=== PATIENT | female | born 1945 | race Caucasian/White ===

== ENCOUNTER 2016-04-05 04:39 | Inpatient (IN) | payer MEDICARE, BC ==
[2016-04-05] MEDS ORDERED: ALBUTEROL 0.083% 3 ML NEB NEB STA (04:47)
[2016-04-05] MEDS ORDERED: METHYLPREDNISOLONE 125 MG/2 ML VIAL IV ONE (04:47)
--- NOTE | 2016-04-05 04:54 | EDPRACDOC ---
[id number] Source: Patient Mode Of Arrival: Ambulance Home Medications: Home Medications Albuterol Sulfate [Proair Hfa] 2 puff INH Q4H PRN 11/24/13 Allopurinol [Zyloprim] [place] [address]11/24/13 Ergocalciferol (Vitamin D2) [Vitamin D2 (ergocalciferol)] 50,000 units PO .QFRIDAY 11/24/13 Furosemide [Lasix] 40 [place] 79911/24/13 Gabapentin [Neurontin] 300 mg PO BID 11/24/13 Diltiazem HCl [Cardizem Cd] [place] [address]/03/14 Acetaminophen Ex Str Tablet [TYLENOL EXTRA STRENGTH Tablet] 1,000 mg PO Q6H PRN 05/27/15 Acetaminophen [Non-Aspirin] 325 mg PO HS PRN 05/27/15 Albuterol/Ipratropium Neb [Duoneb] 3 ml NEB Q6H PRN 05/27/15 Ferrous Sulfate [Feosol] 325 [place] 79905/27/15 Lactobacillus Acidophilus/Pect [Acidophilus-Pectin Capsule] 1 cap PO 799 Loperamide HCl [Imodium A-D] 2 mg PO . DIR PRN 05/27/15 Ondansetron HCl [Zofran] 4 mg PO Q8H PRN 05/27/15 Guaifenesin-Dextromethorphan [Robitussin Dm] 10 ml PO Q4H PRN 02/21/16 Liraglutide [Victoza 0.6 mg/0.1 ml] 1.2 mg SQ .DAILY@NOON 02/21/16 Magnesium Oxide [Mag-Ox] 400 mg PO 199902/21/16 Potassium Chloride [Klor-Con M20] 20 meq PO 199902/21/16 Zolpidem Tartrate [Ambien] 5 mg PO HS PRN 02/21/16 Alprazolam [Xanax] 0.25 mg PO DAILY PRN 04/05/16 Cyanocobalamin (Vitamin B-12) [Vitamin B-12] 2,000 mcg PO 199904/05/16 Escitalopram Oxalate [Lexapro] 10 mg PO 0804/05/16 Oxycodone HCl/Acetaminophen [Percocet 5-325 mg Tablet] 1 each PO Q4H PRN Allergies/Adverse Reactions: Allergies Allergy/AdvReac Type Severity Reaction Status Date / Time amoxicillin [Amoxicillin] Allergy Unknown Rash-Genera Verified 04/05/16 10:37 lized Penicillins Allergy Rash-Genera Verified 04/05/16 10:37 lized - History of Present Illness HPI: PT PRESENTS WITH PROGRESSIVE DYSPNEA AND COUGH OVER THE LAST FEW DAYS. GIVEN AN ALBUTEROL TREATMENT BY EMS IN ROUTE TO HOSPITAL WITH PARTIAL IMPROVEMENT. Shortness of Breath: Moderate Relevant History: Reports: Heart Failure (CHF) SOB Worsens with: Reports: Exertion SOB Improves with: Reports: Inhaler Associated Signs and symptoms: Reports: Cough. Denies: Nasal Symptoms, Vomiting , Diarrhea ED Past Medical History - History Reviewed Yes Nurses notes reviewed and agree except as marked - Patient Medical History Neurological History: Reports: Cerebrovascular Accident, Seizures (20 YRS AGO) Cardiac History: Reports: Hypertension, Congestive Heart Failure, Hypercholesterolemia Respiratory History: Reports: Pneumonia GI/ History: Reports: Renal Failure (JUST DIAGNOSED). Denies: Kidney Stones Musculoskeletal History: Reports: Arthritis, Gout Psychological History: Reports: Depression, Anxiety. Denies: Substance Use Disorder Systemic History: Reports: Diabetes, Hypothyroidism (thyroidectomy). Denies: Cancer Surgical History: Reports: Tonsillectomy/Adnoidectomy, Other (Thyroidectomy ( Dr. Vides), Leg surgery as a child, knees, cataracts) - Family Medical History Reports: Hypertension (Father.), Cancer (Pancreatic: father.), Cardiac Disorders (Father with IA and heart disease.). Denies: Diabetes, Stroke - Social Medical History Smoking Status: Never smoker Social History: Denies: Substance Use Disorder EDM Review of Systems - Review of Systems ROS Negative Except as Marked: Yes All systems reviewed and were negative except as marked Constitutional: Fatigue, Weakness. negative: Fever Respiratory: Cough, Shortness of Breath, Wheezing Cardiovascular: negative: Chest Pain Gastrointestinal: negative: Pain, Vomiting - Physical Exam Constitutional: Alert Oriented to: Person, Place Last recorded Vital Signs: Oxygen Pulse Oxygen Saturation O2 Device Oxygen Flow Rate Fraction of Inspired Oxygen ( FIO2) - HEENT Head: negative: Deformity, Laceration Eye Exam: negative: Conjunctival Injection, Pale Conjunctiva Oropharynx: Membranes Dry (TACKY) Nose: negative: Congestion, Discharge Neck: negative: Limited ROM - Respiratory/Cardiovascular Respiratory: Diminished, Tachypnea, Wheezes (DIFFUSE) Cardiovascular: negative: Bradycardia, Tachycardia, Irregular - GI Auscultation: Normal Palpation: Normal Tenderness: Non tender - Musculoskeletal Extremities: Radial Pulse (PALPABLE) - Integumentary Skin: Warm, Dry. negative: Rash - Neurologic Memory Impaired: Normal Motor Function: Normal Mood Description: Anxious Thought: Coherent Perception: Normal ED SOB MDM - Results Result Diagrams: 04/05/16 04:45 04/05/16 04:45 - EKG EKG #1 EKG Time: 04:54 -: Yes EKG interpreted by me Rate: bpm: 92 Rhythm: NSR Block: 1 ST: Nonsp - Departure Yes I personally saw and evaluated the patient. Disposition: Admit IP To This Hospital Condition: Stable Final Diagnosis: COPD EXACERBATION, Elevated brain natriuretic peptide (BNP) level, Lactic acidosis, Hypoxia Decision to Admit Time: 07:00 Decision to admit date: 04/05/16 Decision to admit: from ED
[2016-04-05 05:03] LABS: ABG Draw Site Right Radial; ALLEN'S TEST PASS; BEb 7.1 (+/- 2); TCO2 33.4 MMOL/L (23-27)
[2016-04-05 05:04] LABS: AUTOMATED BASOPHIL 0.4 % (0-2); AUTOMATED EOSINOPHIL 0.7 % (0-5); AUTOMATED LYMPH 18.6 % (17-44); AUTOMATED MONOCYTE 12.5 % (3-10); AUTOMATED NEUTROPHIL 67.8 % (45-76); MPV 6.8 fL (7.4-10.4)
[2016-04-05 05:14] LABS: BLOOD UREA NITROGEN 21 MG/DL (7-17); CALC CORRECTED 8.7 MG/DL (8.4-10.2); CALCIUM 8.3 MG/DL (8.4-10.2); CALCULATED OSMOLALITY 267 MOs/Kg (270-290); CHLORIDE 97 mEq/L (98-107); CPK TOTAL WITH POSSIBLE MB 59 IU/L (30-134); GLUCOSE 135 MG/DL (70-99); SODIUM LEVEL 136 mEq/L (137-146); TOTAL PROTEIN 6.8 G/DL (6.3-8.2)
[2016-04-05 05:16] LABS: PARTIAL THROMB. TIME 26.7 SEC (22-35)
[2016-04-05 05:40] LABS: RBC/URINE 0-2 (0-5)
[2016-04-05 05:41] LABS: LEUKOCYTES/URINE NEG (NEGATIVE); NITRITE/URINE NEG (NEGATIVE); URINE OCCULT BLOOD NEG (NEG/TRACE)
--- NOTE | 2016-04-05 06:29 | DIRPT ---
CLINICAL DATA: Initial evaluation for acute dyspnea. EXAM: PORTABLE CHEST 1 VIEW COMPARISON: Prior study from 02/21/2016. FINDINGS: Cardiac and mediastinal silhouettes are stable in size and contour, and remain within normal limits. Surgical clips overlie the region of the thyroid. Lungs are hypoinflated. Mild right basilar atelectasis. Mild central perihilar vascular congestion without overt pulmonary edema. No pleural effusion. No consolidative airspace opacity. No pneumothorax. No acute osseous abnormality. Sclerotic lesion in the left humeral head is stable. IMPRESSION: 1. Mild perihilar vascular congestion without overt pulmonary edema. 2. Shallow lung inflation with mild right basilar atelectasis. 3. No other active cardiopulmonary disease. Electronically Signed By: Gold Vincent M.D. On: 04/05/2016 06:26
[2016-04-05] MEDS ORDERED: Docusate Sodium 100 MG CAP PO PRN (08:23)
[2016-04-05] MEDS ORDERED: MAGNESIUM HYDROXIDE 30 ML BOTTLE PO PRN (08:23)
[2016-04-05] MEDS ORDERED: ONDANSETRON HCL 4 MG/2 ML VIAL IV PRN (08:23)
[2016-04-05] MEDS ORDERED: GLUCOSE (ORAL GEL) 15 GM TUBE PO PRN (08:23)
[2016-04-05] MEDS ORDERED: GUAIFENESIN 200 MG/10 ML UDC PO PRN (08:23)
[2016-04-05] MEDS ORDERED: BENZONATATE 100 MG PERLES PO PRN (08:23)
[2016-04-05] MEDS ORDERED: DEXTROSE 25 GM/50 ML PFS IV PRN (08:23)
[2016-04-05] MEDS ORDERED: GLUCAGON 1 MG VIAL SQ PRN (08:23)
--- NOTE | 2016-04-05 08:23 | HISTPHYS ---
- Chief Complaint shortness of breath, copd exacerbation - History of Present Illness Ms Rascon is a 70-year-old white female, resident of [facility] was sent to the emergency room with increasing respiratory distress and congestion. She has low cognitive function and is unable to provide much history. Her brother answers most questions for her. He states that she was doing well up until just couple of days ago. Since then she has had increasing cough, congestion, wheezing, shortness of breath. She normally does not wear oxygen and does not require nebulizer treatments. In the emergency room she is wheezing diffusely with increased work of breathing. She is severely hypoxic with a PO2 in the 50s. X-ray shows no obvious acute infiltrate given her hypoxia and respiratory distress she will be admitted to the hospital for further evaluation and management. - Medical History Cardiac History: Reports: Hypertension, Congestive Heart Failure, Hypercholesterolemia Respiratory History: Reports: Pneumonia GI/ History: Reports: Renal Failure (JUST DIAGNOSED). Denies: Kidney Stones Musculoskeletal History: Reports: Arthritis, Gout Systemic History: Reports: Diabetes, Hypothyroidism (thyroidectomy). Denies: Cancer Neurological History: Reports: Cerebrovascular Accident, Seizures (20 YRS AGO), Other Psychological History: Reports: Depression, Anxiety. Denies: Substance Use Disorder - Surgical History Reports: Tonsillectomy/Adnoidectomy, Other (Thyroidectomy (Dr. Vides), Leg surgery as a child, knees, cataracts) - Medictions/Allergies Allergies amoxicillin [Amoxicillin] Allergy (Unknown, Verified 05/27/15 19:02) Rash-Generalized Penicillins Allergy (Verified 05/27/15 19:02) Rash-Generalized Home Medications Albuterol Sulfate [Proair Hfa] 2 puff INH Q4H PRN 11/24/13 Allopurinol [Zyloprim] 100 mg PO DAILY 11/24/13 Ergocalciferol (Vitamin D2) [Vitamin D2 (ergocalciferol)] 50,000 units PO .QFRIDAY 11/24/13 Furosemide [Lasix] 40 mg PO QAM 11/24/13 Gabapentin [Neurontin] 300 mg PO BID 11/24/13 Diltiazem HCl [Cardizem Cd] 240 mg PO QAM 04/03/14 Acetaminophen Ex Str Tablet [TYLENOL EXTRA STRENGTH Tablet] 1,000 mg PO Q6H PRN 05/27/15 Acetaminophen [Non-Aspirin] 325 mg PO HS PRN 05/27/15 Albuterol/Ipratropium Neb [Duoneb] 3 ml NEB Q6H PRN 05/27/15 Ferrous Sulfate [Feosol] 325 mg PO DAILY 05/27/15 Lactobacillus Acidophilus/Pect [Acidophilus-Pectin Capsule] 1 cap PO DAILY 05/26 Loperamide HCl [Imodium A-D] 2 mg PO . DIR PRN 05/27/15 Ondansetron HCl [Zofran] 4 mg PO Q8H PRN 05/27/15 CYANOCOBALAMIN (Vitamin B-12) [Vitamin B-12] 1,000 mcg SQ .MONTHLY 02/21/16 Escitalopram Oxalate [Lexapro] 5 mg PO DAILY 02/21/16 Guaifenesin [Humabid, Mucinex] 600 mg PO Q12H 02/21/16 Guaifenesin-Dextromethorphan [Robitussin Dm] 10 ml PO Q4H PRN 02/21/16 Levofloxacin [Levaquin] 750 mg PO .DAILY X 10D 02/21/16 Liraglutide [Victoza 0.6 mg/0.1 ml] 1.2 mg SQ DAILY@0800 02/21/16 Magnesium Oxide [Mag-Ox] 400 mg PO DAILY 02/21/16 Norel Ad 1 tab PO Q6H 02/21/16 Potassium Chloride [Klor-Con M20] 20 meq PO DAILY 02/21/16 Zolpidem Tartrate [Ambien] 5 mg PO HS PRN 02/21/16 - Family History Reports: Hypertension (Father.), Cancer (Pancreatic: father.), Cardiac Disorders (Father with PA and heart disease.). Denies: Diabetes, Stroke - Social History Lives: in Assisted Living Smoking Status: Never smoker Social History: Denies: Alcohol Use, Substance Use Disorder - Review of Systems Yes Review of systems cannot be obtained due to the patient's medical condition Constitutional: negative: Fever - Physical Exam Constitutional: Alert, Distress. negative: Well appearing (Acutely ill- appearing) Oriented to: Person, Place Exam: Last Vital Signs Temp 99.1 F 04/05/16 04:46 Pulse 94 04/05/16 06:25 Resp 18 04/05/16 06:25 BP 140/63 04/05/16 06:25 Pulse Ox 93 04/05/16 06:25 Intake & Output 04/04/16 04/05/16 04/05/16 23:59 07:59 15:59 Patient's weight 72.575 kg - HEENT Head: Normal. negative: Deformity, Laceration Eye: Normal. negative: Conjunctival Injection, Pale Conjunctiva Oropharynx: Normal, Membranes Dry (TACKY) Nose: negative: Congestion, Discharge - Respiratory/Cardiovascular Respiratory: Diminished, Rhonchi, Tachypnea, Wheezes (DIFFUSE) Cardiovascular: Tachycardia - GI Auscultation: Normal Palpation: Normal Tenderness: Non tender - Musculoskeletal Back: Normal. negative: Abrasion, Ecchymosis Extremities: Normal, Femoral Pulse, Pedal Pulse, Radial Pulse (PALPABLE). negative: Edema, Pedal Edema - Integumentary Skin: Normal, Warm, Dry. negative: Rash Lymphatics: Normal. negative: Adenopathy - Neurologic Memory Impaired: Normal Motor Function: Normal Cranial Nerve: Normal Cerebellar: Normal Mood Description: Anxious Thought: Coherent Perception: Normal - Focused CV Perfusion Exam Vital Signs: Last Vital Signs Temp 99.1 F 04/05/16 04:46 Pulse 94 04/05/16 06:25 Resp 18 04/05/16 06:25 BP 140/63 04/05/16 06:25 Pulse Ox 93 04/05/16 06:25 - Lab Results Laboratory Results - last 24 hr 04/05/16 04/05/16 04/05/16 04:45 04:45 04:45 WBC 10.5 RBC 3.45 L Hgb 10.6 L Hct 31.7 L MCV 92 MCH 30.7 MCHC 33.4 RDW 14.4 Plt Count 188 MPV 6.8 L Neut % (Auto) 67.8 Lymph % (Auto) 18.6 Starr % (Auto) 12.5 H Eos % (Auto) 0.7 Baso % (Auto) 0.4 Absolute Neuts (auto) 7.04 Absolute Lymphs (auto) 1.89 PT INR APTT Puncture Site pH pCO2 pO2 HCO3 Total CO2 Base Excess FiO2 % Specimen Drawn By Sodium 136 L Potassium 4.9 Chloride 97 L Carbon Dioxide 30 Anion Gap 14 BUN 21 H Creatinine 1.40 H Estimated GFR (MDRD) 37 L Glucose 135 H Calculated Osmolality 267 L Lactic Acid 2.2 H Calcium 8.3 L Corrected Calcium 8.7 Total Bilirubin 0.7 AST 20 ALT 31 Alkaline Phosphatase 130 Creatine Kinase 59 Troponin I < 0.01 [id number] Pept Total Protein 6.8 Albumin 3.6 Urine Color Urine Clarity Urine pH Ur Specific Cobb Urine Protein Urine Glucose (UA) Urine Ketones Urine Occult Blood Urine Nitrite Urine Bilirubin Urine Urobilinogen Ur Leukocyte Esterase Urine RBC Urine WBC Ur Epithelial Cells Urine Bacteria Urine Mucus 04/05/16 04/05/16 04/05/16 04:45 04:45 04:55 WBC RBC Hgb Hct MCV MCH MCHC RDW Plt Count MPV Neut % (Auto) Lymph % (Auto) Starr % (Auto) Eos % (Auto) Baso % (Auto) Absolute Neuts (auto) Absolute Lymphs (auto) PT 10.0 INR 1.0 APTT 26.7 Puncture Site Right radial pH 7.460 H pCO2 45.0 pO2 59.0 L HCO3 32.0 H Total CO2 33.4 H Base Excess 7.1 H FiO2 % 2lpm/nc Specimen Drawn By Alham Sodium Potassium Chloride Carbon Dioxide Anion Gap BUN Creatinine Estimated GFR (MDRD) Glucose Calculated Osmolality Lactic Acid Calcium Corrected Calcium Total Bilirubin AST ALT Alkaline Phosphatase Creatine Kinase Troponin I [id number] Pept 4470 H Total Protein Albumin Urine Color Urine Clarity Urine pH Ur Specific Cobb Urine Protein Urine Glucose (UA) Urine Ketones Urine Occult Blood Urine Nitrite Urine Bilirubin Urine Urobilinogen Ur Leukocyte Esterase Urine RBC Urine WBC Ur Epithelial Cells Urine Bacteria Urine Mucus 04/05/16 04/05/16 05:30 07:49 WBC RBC Hgb Hct MCV MCH MCHC RDW Plt Count MPV Neut % (Auto) Lymph % (Auto) Starr % (Auto) Eos % (Auto) Baso % (Auto) Absolute Neuts (auto) Absolute Lymphs (auto) PT INR APTT Puncture Site pH pCO2 pO2 HCO3 Total CO2 Base Excess FiO2 % Specimen Drawn By Sodium Potassium Chloride Carbon Dioxide Anion Gap BUN Creatinine Estimated GFR (MDRD) Glucose Calculated Osmolality Lactic Acid Calcium Corrected Calcium Total Bilirubin AST ALT Alkaline Phosphatase Creatine Kinase Troponin I < 0.01 [id number]-[id number] Pept Total Protein Albumin Urine Color Yellow Urine Clarity Clear Urine pH 5.0 Ur Specific Cobb 1.010 Urine Protein Trace Urine Glucose (UA) Neg Urine Ketones Neg Urine Occult Blood Neg Urine Nitrite Neg Urine Bilirubin Neg Urine Urobilinogen 0.2 Ur Leukocyte Esterase Neg Urine RBC 0-2 Urine WBC 5-10 H Ur Epithelial Cells 2+ Urine Bacteria Few Urine Mucus Occ - Assessment (1) COPD exacerbation J44.1 - CHRONIC OBSTRUCTIVE PULMONARY DISEASE W (ACUTE) EXACERBATION Acute Present on Admission: Yes Moderate hypoxia and significant wheezing on exam. Nonsmoker and symptoms likely exacerbated by acute bronchitis. Will start on IV steroids, nebulizer treatments, IV antibiotics pulmonary toilet. Oxygen as needed and increase activity as tolerated (2) Acute bronchitis J20.9 - ACUTE BRONCHITIS, UNSPECIFIED Acute Present on Admission: Yes Qualifiers: Bronchitis organism: unspecified organism Qualified Code(s): J20.9 - Acute bronchitis, unspecified Significant cough, congestion and shortness of breath. 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 Continue current medications, Accu-Cheks and sliding scale insulin. Steroids likely will exacerbate and will need to be monitored closely (4) Hypertension I10 - ESSENTIAL (PRIMARY) HYPERTENSION Acute Present on Admission: Yes Qualifiers: Hypertension type: essential hypertension Qualified Code(s): I10 - Essential (primary) hypertension Continue home medications and monitor (5) Acute kidney injury N17.9 - ACUTE KIDNEY FAILURE, UNSPECIFIED Acute Present on Admission: Yes Mild. IV fluids and supportive care. (6) Lactic acidosis E87.2 - ACIDOSIS Acute Present on Admission: Yes Mild. Expect will improve with IV hydration. Case Care Discussed with: Patient, Family (Discussed with brother at length)
[2016-04-05] MEDS ORDERED: ESCITALOPRAM OXALATE 10 MG TAB PO SCH (09:00)
[2016-04-05] MEDS ORDERED: LIRAGLUTIDE 18 MG/3ML (0.6 MG/0.1 ML) PEN SQ SCH (09:00)
[2016-04-05] MEDS ORDERED: CYANOCOBALAMIN 1000 MCG/ML VIAL SQ SCH (09:00)
[2016-04-05] MEDS: Levofloxacin 750 mg/150 ml D5W 750 MG/150 ML RTU IV SCH (09:22)
[2016-04-05] MEDS: NS 1,000 ML IV SCH ×2 (09:22→20:06)
[2016-04-05] MEDS: GABAPENTIN 300 MG CAP PO SCH ×2 (09:33→20:07)
[2016-04-05] MEDS: LACTOBACILLUS ACIDOPHILUS TAB PO SCH (09:33)
[2016-04-05] MEDS: ALLOPURINOL 100 MG TAB PO SCH (09:34)
[2016-04-05] MEDS: FUROSEMIDE 40 MG TAB PO SCH (09:34)
[2016-04-05] MEDS: METHYLPREDNISOLONE 125 MG/2 ML VIAL IV SCH ×3 (09:35→20:07)
[2016-04-05] MEDS: LIRAGLUTIDE 18 MG/3ML (0.6 MG/0.1 ML) PEN SQ SCH (09:35)
[2016-04-05] MEDS: Albuterol/Ipratropium Neb 3 ML NEB NEB PRN ×2 (09:53→17:17)
[2016-04-05] MEDS ORDERED: Vaccine Screening Complete SCH (11:00)
[2016-04-05] MEDS: MAGNESIUM OXIDE 400 MG TAB PO SCH (11:57)
[2016-04-05] MEDS: POTASSIUM CHLORIDE 20 MEQ TAB PO SCH (11:57)
[2016-04-05] MEDS: FERROUS SULFATE 324 MG TAB PO SCH (11:57)
[2016-04-05] MEDS: REGULAR INSULIN 100 UNITS/ML - 3 ML VIAL SQ SCH ×3 (11:58→20:08)
[2016-04-05] MEDS: Albuterol/Ipratropium Neb 3 ML NEB NEB SCH ×2 (13:25→21:04)
[2016-04-05] MEDS: ENOXAPARIN 40 MG/0.4 ML PFS SQ SCH (16:52)
--- NOTE | 2016-04-05 19:26 | GENMEDPROG ---
Note CROSS COVER NOTE 04/05/161909 S: NURSE CALLED. NEW RESULTS. BLOOD CULTURE 1/2 WITH GPC IN CHAINS. O: BLOOD CULTURE 1/2 FROM TODAY, 04/05/16: GPC IN CHAINS. A/P: 1. BACTEREMIA DUE TO GPC IN CHAINS. Could be Strep pneumo or other organism. Discussed with lab: no definitive answer yet. Discussed with pharmacy: Low rates of resistance of Levaquin to Strep pneumo at this facility. Plan: Monitor temp. If any deterioration, could consider adding another antibiotic, such as ceftriaxone. For now, until further information is known, continue Levaqin.
[2016-04-05] MEDS: ACETAMINOPHEN 325 MG/TAB TABLET PO PRN (22:28)
[2016-04-05] MEDS: ZOLPIDEM TARTRATE 5 MG TAB PO PRN (22:28)
[2016-04-06] MEDS: Albuterol/Ipratropium Neb 3 ML NEB NEB SCH ×4 (02:16→21:29)
[2016-04-06 04:52] LABS: ALLEN'S TEST PASS; BEb 2.2 (+/- 2); TCO2 29.8 MMOL/L (23-27)
[2016-04-06 04:53] LABS: ABG Draw Site Right Radial
[2016-04-06 05:36] VITALS: BMI 34.4
[2016-04-06] MEDS: METHYLPREDNISOLONE 125 MG/2 ML VIAL IV SCH ×4 (06:06→20:27)
[2016-04-06] MEDS: REGULAR INSULIN 100 UNITS/ML - 3 ML VIAL SQ SCH ×4 (06:08→20:25)
[2016-04-06] MEDS: NS 1,000 ML IV SCH ×3 (06:14→17:38)
[2016-04-06 07:39] LABS: BLOOD UREA NITROGEN 24 MG/DL (7-17); CALCIUM 7.7 MG/DL (8.4-10.2); CALCULATED OSMOLALITY 268 MOs/Kg (270-290); CHLORIDE 99 mEq/L (98-107); GLUCOSE 204 MG/DL (70-99); SODIUM LEVEL 134 mEq/L (137-146)
[2016-04-06 07:47] LABS: SEG NEUTROPHIL 89 % (45-76)
[2016-04-06] MEDS: ALLOPURINOL 100 MG TAB PO SCH (08:16)
[2016-04-06] MEDS: GABAPENTIN 300 MG CAP PO SCH ×2 (08:16→20:25)
[2016-04-06] MEDS: LIRAGLUTIDE 18 MG/3ML (0.6 MG/0.1 ML) PEN SQ SCH (08:17)
[2016-04-06] MEDS: ESCITALOPRAM OXALATE 10 MG TAB PO SCH (08:17)
[2016-04-06] MEDS: FUROSEMIDE 40 MG TAB PO SCH (08:17)
[2016-04-06] MEDS: FERROUS SULFATE 324 MG TAB PO SCH (08:18)
[2016-04-06] MEDS: Levofloxacin 750 mg/150 ml D5W 750 MG/150 ML RTU IV SCH (08:18)
--- NOTE | 2016-04-06 10:14 | GENMEDPROG ---
Chief Complaint: COPD exac, acute bronchitis, DM-2, HTN Currently: Reports: Cough, NAGY, SOB DVT Prophylaxis: Yes - Physical Examination Vital Signs and I&O: Last Vital Signs Temp 97.9 F 04/06/16 05:36 Pulse 80 04/06/16 05:36 Resp 20 04/06/16 05:36 BP 124/60 04/06/16 05:36 Pulse Ox 91 04/06/16 08:00 Oxygen Pulse Oxygen Saturation 91 O2 Device Nasal Cannula Oxygen Flow Rate 2.5 Fraction of Inspired Oxygen ( FIO2) Intake & Output 04/03/16 04/04/16 04/05/16 04/06/16 23:59 23:59 23:59 23:59 Intake Total 1781 1475 Balance 178 1475 Patient's weight 84.368 kg 85.36 kg General: Alert, Oriented x3, Cooperative, Mild distress HEENT: Normal, PERRLA, EOMI, Anicteric Sclera, Mucous membr. moist/pink Neck: Full range of motion, Normal Trachea alignment, Normal inspection, No Masses palpable, No Thyromegaly palpable Lymphatics: Normal Respiratory: Diminished, Tachypnea, Wheezes (DIFFUSE) Cardiovascular: Regular rate and rhythm, Normal S1, Normal S2, Good Pedal Pulses , PMI Not Lateralized, Chest Non Tender. negative: LE Edema GI: Normal bowel sounds, Soft, Non tender, No masses Extremities/Musculoskeletal: Normal pulses, FROM. negative: Edema, Clubbing, Cyanosis Skin: Warm,Dry and Intact, No breakdown Neurological: Normal speech, Strength at 5/5 X4 ext, Normal tone, DTR Intact, Cranial Nerves (normal) Psych/Mental Status: Appropriate, Normal Affect, Cooperative Lab/DI/Studies Reviewed: Laboratory Tests 04/06/16 04/06/16 04/06/16 04:45 06:05 06:05 WBC 11.6 H Hgb 9.2 L D Hct 27.9 L Plt Count 178 Seg Neuts % (Manual) 89 H Band Neutrophils % 1 Lymphocytes % (Manual) 8 L Puncture Site Right radial pH 7.370 pCO2 49.0 H pO2 64.0 L HCO3 28.3 H Total CO2 29.8 H Base Excess 2.2 H FiO2 % 1.5l nc Sodium 134 L Potassium 4.4 Chloride 99 Carbon Dioxide 27 Anion Gap 12 BUN 24 H Creatinine 1.20 H Estimated GFR (MDRD) 45 L Glucose 204 H POC Capillary Glucose Calculated Osmolality 268 L Calcium 7.7 L 04/06/16 11:07 WBC Hgb Hct Plt Count Seg Neuts % (Manual) Band Neutrophils % Lymphocytes % (Manual) Puncture Site pH pCO2 pO2 HCO3 Total CO2 Base Excess FiO2 % Sodium Potassium Chloride Carbon Dioxide Anion Gap BUN Creatinine Estimated GFR (MDRD) Glucose POC Capillary Glucose 343 H Calculated Osmolality Calcium Microbiology 04/05/16 05:30 Urine - Clean Catch - Midstream Urine Culture - Final Contaminated: Multiple organisms present. - Assessment (1) Acute bronchitis Acute J20.9 - ACUTE BRONCHITIS, UNSPECIFIED Qualifiers: Bronchitis organism: unspecified organism Qualified Code(s): J20.9 - Acute bronchitis, unspecified Comment/Plan: Significant cough, congestion and shortness of breath. IV antibiotic w/ Levaquin and pulmonary toilet as outlined (2) COPD exacerbation Acute J44.1 - CHRONIC OBSTRUCTIVE PULMONARY DISEASE W (ACUTE) EXACERBATION Comment/Plan: Moderate hypoxia and significant wheezing on exam. Nonsmoker and symptoms likely exacerbated by acute bronchitis. Will start on IV steroids, nebulizer treatments, IV antibiotics, pulmonary toilet. Oxygen as needed and increase activity as tolerated (3) Diabetes mellitus Acute E11.9 - TYPE 2 DIABETES MELLITUS WITHOUT COMPLICATIONS Qualifiers: Diabetes mellitus type: type 2 Diabetes mellitus complication status: without complication Diabetes mellitus complication detail: D Diabetic retinopathy severity: D Proliferative retinopathy type: P Diabetes mellitus macular edema: D Diabetes mellitus alf insulin use: without alf use Laterality: L Chronic kidney disease stage: C Qualified Code(s): E11.9 - Type 2 diabetes mellitus without complications Comment/Plan: Currently on Victoza. Continue current medications, Accu-Cheks and sliding scale insulin. Steroids likely will exacerbate and will need to be monitored closely (4) Hypertension Acute I10 - ESSENTIAL (PRIMARY) HYPERTENSION Qualifiers: Hypertension type: essential hypertension Qualified Code(s): I10 - Essential (primary) hypertension Comment/Plan: Continue home medications and monitor (5) Acute on chronic renal failure Acute N17.9 - ACUTE KIDNEY FAILURE, UNSPECIFIED; N18.9 - CHRONIC KIDNEY DISEASE, UNSPECIFIED Case Care Discussed with: Patient, Nursing Staff Education/Counseling Given To: Patient Education/Counseling Given Regarding: Diagnosis, Treatment, Prognosis Critical Care: No Couseling Time (>50% in counseling/coordination): No Code: 61487 (12+)
[2016-04-06] MEDS: MAGNESIUM OXIDE 400 MG TAB PO SCH (12:41)
[2016-04-06] MEDS: POTASSIUM CHLORIDE 20 MEQ TAB PO SCH (12:41)
[2016-04-06] MEDS: LACTOBACILLUS ACIDOPHILUS TAB PO SCH (13:35)
[2016-04-06] MEDS: ENOXAPARIN 40 MG/0.4 ML PFS SQ SCH (17:37)
[2016-04-06] MEDS: ACETAMINOPHEN 325 MG/TAB TABLET PO PRN (21:39)
[2016-04-06] MEDS: ZOLPIDEM TARTRATE 5 MG TAB PO PRN (22:19)
[2016-04-07] MEDS: ALBUTEROL 0.083% 3 ML NEB NEB SCH ×4 (02:43→21:12)
[2016-04-07] MEDS: METHYLPREDNISOLONE 125 MG/2 ML VIAL IV SCH ×2 (05:21→10:57)
[2016-04-07] MEDS: REGULAR INSULIN 100 UNITS/ML - 3 ML VIAL SQ SCH ×5 (05:22→22:56)
[2016-04-07] MEDS: NS 1,000 ML IV SCH ×2 (07:29→17:11)
[2016-04-07] MEDS: FUROSEMIDE 40 MG TAB PO SCH (09:09)
[2016-04-07] MEDS: ESCITALOPRAM OXALATE 10 MG TAB PO SCH (09:09)
[2016-04-07] MEDS: LACTOBACILLUS ACIDOPHILUS TAB PO SCH (09:09)
[2016-04-07] MEDS: GABAPENTIN 300 MG CAP PO SCH ×2 (09:09→21:16)
[2016-04-07] MEDS: ALLOPURINOL 100 MG TAB PO SCH (09:09)
[2016-04-07] MEDS ORDERED: LIRAGLUTIDE 18 MG/3ML (0.6 MG/0.1 ML) PEN SQ SCH (10:00)
[2016-04-07] MEDS: LIRAGLUTIDE 18 MG/3ML (0.6 MG/0.1 ML) PEN SQ SCH (10:06)
--- NOTE | 2016-04-07 10:52 | GENMEDPROG ---
Currently: Reports: Cough, NAGY, SOB DVT Prophylaxis: Yes - Physical Examination Vital Signs and I&O: Last Vital Signs Temp 98.1 F 04/07/16 05:33 Pulse 86 04/07/16 08:00 Resp 18 04/07/16 08:00 BP 125/66 04/07/16 05:33 Pulse Ox 94 04/07/16 08:00 Oxygen Pulse Oxygen Saturation 94 O2 Device Nasal Cannula Oxygen Flow Rate 3 Fraction of Inspired Oxygen ( FIO2) Intake & Output 04/04/16 04/05/16 04/06/16 04/07/16 23:59 23:59 23:59 23:59 Intake Total 1787 3309 1265 Balance 1787 3309 1265 Patient's weight 84.368 kg 85.36 kg 85.956 kg General: Alert, Oriented x3, Cooperative, Mild distress HEENT: Normal, PERRLA, EOMI, Anicteric Sclera, Mucous membr. moist/pink Neck: Full range of motion, Normal Trachea alignment, Normal inspection, No Masses palpable, No Thyromegaly palpable Lymphatics: Normal Respiratory: Diminished, Tachypnea, Wheezes (DIFFUSE) Cardiovascular: Regular rate and rhythm, Normal S1, Normal S2, Good Pedal Pulses , PMI Not Lateralized, Chest Non Tender. negative: LE Edema GI: Normal bowel sounds, Soft, Non tender, No masses Extremities/Musculoskeletal: Normal pulses, FROM. negative: Edema, Clubbing, Cyanosis Skin: Warm,Dry and Intact, No breakdown Neurological: Normal speech, Strength at 5/5 X4 ext, Normal tone, DTR Intact, Cranial Nerves (normal) Psych/Mental Status: Appropriate, Normal Affect, Cooperative Lab/DI/Studies Reviewed: Microbiology 04/05/16 04:50 Blood Blood Culture - Final Streptococcus [Viridans Group]- PROBABLY A CONTAMINANT 04/05/16 04:45 Blood Blood Culture - Preliminary No growth aerobically or anaerobically at 24-48 hours. NORMAL VALUE = No growth - Assessment (1) Acute bronchitis Acute J20.9 - ACUTE BRONCHITIS, UNSPECIFIED Qualifiers: Bronchitis organism: unspecified organism Qualified Code(s): J20.9 - Acute bronchitis, unspecified Comment/Plan: Presented with cough, congestion and shortness of breath. IV antibiotic w/ Levaquin and pulmonary toilet as outlined. Patient doing well on current antibiotics. 1 blood culture + with probable contaminant. Continue current treatment. (2) COPD exacerbation Acute J44.1 - CHRONIC OBSTRUCTIVE PULMONARY DISEASE W (ACUTE) EXACERBATION Comment/Plan: Hypoxia and wheezing improving. Nonsmoker, so symptoms likely exacerbated by acute bronchitis. Will wean IV steroids, continue nebulizer treatments, IV antibiotics, pulmonary toilet. Oxygen as needed and increase activity as tolerated (3) Diabetes mellitus Acute E11.9 - TYPE 2 DIABETES MELLITUS WITHOUT COMPLICATIONS Qualifiers: Diabetes mellitus type: type 2 Diabetes mellitus complication status: without complication Diabetes mellitus complication detail: D Diabetic retinopathy severity: D Proliferative retinopathy type: P Diabetes mellitus macular edema: D Diabetes mellitus snf insulin use: without extermination inspector use Laterality: L Chronic kidney disease stage: C Qualified Code(s): E11.9 - Type 2 diabetes mellitus without complications Comment/Plan: Currently on Victoza. Continue current medications, Accu-Cheks and sliding scale insulin. Steroids likely will exacerbate and will need to be monitored closely (4) Hypertension Acute I10 - ESSENTIAL (PRIMARY) HYPERTENSION Qualifiers: Hypertension type: essential hypertension Qualified Code(s): I10 - Essential (primary) hypertension Comment/Plan: Continue home medications and monitor (5) Acute on chronic renal failure Acute N17.9 - ACUTE KIDNEY FAILURE, UNSPECIFIED; N18.9 - CHRONIC KIDNEY DISEASE, UNSPECIFIED
[2016-04-07] MEDS: Levofloxacin 750 mg/150 ml D5W 750 MG/150 ML RTU IV SCH (11:00)
[2016-04-07] MEDS: FERROUS SULFATE 324 MG TAB PO SCH (12:58)
[2016-04-07] MEDS: MAGNESIUM OXIDE 400 MG TAB PO SCH (12:58)
[2016-04-07] MEDS: POTASSIUM CHLORIDE 20 MEQ TAB PO SCH (12:58)
[2016-04-07] MEDS: Albuterol/Ipratropium Neb 3 ML NEB NEB PRN (13:39)
[2016-04-07] MEDS: ENOXAPARIN 40 MG/0.4 ML PFS SQ SCH (17:38)
[2016-04-07] MEDS ORDERED: METHYLPREDNISOLONE 125 MG/2 ML VIAL IV SCH (20:00)
[2016-04-07] MEDS: METHYLPREDNISOLONE 40 MG/1 ML VIAL IV SCH (20:31)
[2016-04-08] MEDS: METHYLPREDNISOLONE 40 MG/1 ML VIAL IV SCH ×4 (00:25→18:14)
[2016-04-08] MEDS: ZOLPIDEM TARTRATE 5 MG TAB PO PRN ×2 (00:34→22:32)
[2016-04-08] MEDS: ALBUTEROL 0.083% 3 ML NEB NEB SCH ×4 (02:09→21:07)
[2016-04-08] MEDS: REGULAR INSULIN 100 UNITS/ML - 3 ML VIAL SQ SCH ×4 (05:43→22:19)
[2016-04-08] MEDS: LIRAGLUTIDE 18 MG/3ML (0.6 MG/0.1 ML) PEN SQ SCH (08:55)
[2016-04-08] MEDS: ESCITALOPRAM OXALATE 10 MG TAB PO SCH (08:58)
[2016-04-08] MEDS: FUROSEMIDE 40 MG TAB PO SCH (08:58)
[2016-04-08] MEDS: Levofloxacin 750 mg/150 ml D5W 750 MG/150 ML RTU IV SCH (08:58)
[2016-04-08] MEDS: LACTOBACILLUS ACIDOPHILUS TAB PO SCH (08:58)
[2016-04-08] MEDS: GABAPENTIN 300 MG CAP PO SCH ×2 (08:58→22:19)
[2016-04-08] MEDS: ALLOPURINOL 100 MG TAB PO SCH (08:58)
[2016-04-08] MEDS: NS 1,000 ML IV SCH ×3 (08:59→22:21)
[2016-04-08] MEDS: MAGNESIUM OXIDE 400 MG TAB PO SCH (11:29)
[2016-04-08] MEDS: FERROUS SULFATE 324 MG TAB PO SCH (11:29)
[2016-04-08] MEDS: POTASSIUM CHLORIDE 20 MEQ TAB PO SCH (11:29)
--- NOTE | 2016-04-08 15:45 | GENMEDPROG ---
Chief Complaint: COPD Exac, acute bronchitis Currently: Reports: Cough, NAGY, SOB DVT Prophylaxis: Yes - Physical Examination Vital Signs and I&O: Last Vital Signs Temp 98.0 F 04/08/16 14:05 Pulse 93 04/08/16 14:05 Resp 18 04/08/16 14:05 BP 132/63 04/08/16 14:05 Pulse Ox 96 04/08/16 14:05 Oxygen Pulse Oxygen Saturation 96 O2 Device Nasal Cannula Oxygen Flow Rate 3 Fraction of Inspired Oxygen ( FIO2) Intake & Output 04/05/16 04/06/16 04/07/16 04/08/16 23:59 23:59 23:59 23:59 Intake Total 1787 3309 2865 2620 Balance 1787 3309 2865 2627 Patient's weight 84.368 kg 85.36 kg 85.956 kg 86.591 kg General: Alert, Oriented x3, Cooperative, Mild distress HEENT: Normal, PERRLA, EOMI, Anicteric Sclera, Mucous membr. moist/pink Neck: Full range of motion, Normal Trachea alignment, Normal inspection, No Masses palpable, No Thyromegaly palpable Lymphatics: Normal Respiratory: Diminished, Tachypnea, Wheezes (DIFFUSE) Cardiovascular: Regular rate and rhythm, Normal S1, Normal S2, Good Pedal Pulses , PMI Not Lateralized, Chest Non Tender. negative: LE Edema GI: Normal bowel sounds, Soft, Non tender, No masses Extremities/Musculoskeletal: Normal pulses, FROM. negative: Edema, Clubbing, Cyanosis Skin: Warm,Dry and Intact, No breakdown Neurological: Normal speech, Strength at 5/5 X4 ext, Normal tone, DTR Intact, Cranial Nerves (normal) Psych/Mental Status: Appropriate, Normal Affect, Cooperative - Assessment (1) Acute bronchitis Acute J20.9 - ACUTE BRONCHITIS, UNSPECIFIED Qualifiers: Bronchitis organism: unspecified organism Qualified Code(s): J20.9 - Acute bronchitis, unspecified Comment/Plan: Presented with cough, congestion and shortness of breath. IV antibiotic w/ Levaquin and pulmonary toilet as outlined. Patient doing well on current antibiotics. 1 blood culture + with probable contaminant. Continue current treatment. (2) COPD exacerbation Acute J44.1 - CHRONIC OBSTRUCTIVE PULMONARY DISEASE W (ACUTE) EXACERBATION Comment/Plan: Hypoxia and wheezing improving. Nonsmoker, so symptoms likely exacerbated by acute bronchitis. Will wean IV steroids, continue nebulizer treatments, IV antibiotics, pulmonary toilet. Oxygen as needed and increase activity as tolerated (3) Diabetes mellitus Acute E11.9 - TYPE 2 DIABETES MELLITUS WITHOUT COMPLICATIONS Qualifiers: Diabetes mellitus type: type 2 Diabetes mellitus complication status: without complication Diabetes mellitus complication detail: D Diabetic retinopathy severity: D Proliferative retinopathy type: P Diabetes mellitus macular edema: D Diabetes mellitus intermediate insulin use: without intermediate use Laterality: L Chronic kidney disease stage: C Qualified Code(s): E11.9 - Type 2 diabetes mellitus without complications Comment/Plan: Currently on Victoza. Continue current medications, Accu-Cheks and sliding scale insulin. Steroids likely will exacerbate and will need to wean as soon as possible (4) Hypertension Acute I10 - ESSENTIAL (PRIMARY) HYPERTENSION Qualifiers: Hypertension type: essential hypertension Qualified Code(s): I10 - Essential (primary) hypertension Comment/Plan: Continue home medications and monitor (5) Acute on chronic renal failure Acute N17.9 - ACUTE KIDNEY FAILURE, UNSPECIFIED; N18.9 - CHRONIC KIDNEY DISEASE, UNSPECIFIED
[2016-04-08] MEDS: ENOXAPARIN 40 MG/0.4 ML PFS SQ SCH (17:14)
[2016-04-09] MEDS: METHYLPREDNISOLONE 40 MG/1 ML VIAL IV SCH ×3 (01:07→19:56)
[2016-04-09] MEDS: ALBUTEROL 0.083% 3 ML NEB NEB SCH ×4 (01:25→18:55)
[2016-04-09] MEDS: REGULAR INSULIN 100 UNITS/ML - 3 ML VIAL SQ SCH ×4 (05:43→21:09)
[2016-04-09 07:31] LABS: BLOOD UREA NITROGEN 30 MG/DL (7-17); CALCIUM 7.6 MG/DL (8.4-10.2); CALCULATED OSMOLALITY 275 MOs/Kg (270-290); CHLORIDE 99 mEq/L (98-107); GLUCOSE 216 MG/DL (70-99); SODIUM LEVEL 136 mEq/L (137-146)
[2016-04-09] MEDS: LIRAGLUTIDE 18 MG/3ML (0.6 MG/0.1 ML) PEN SQ SCH (08:50)
[2016-04-09] MEDS: NS 1,000 ML IV SCH ×2 (08:50→23:37)
[2016-04-09] MEDS: Levofloxacin 750 mg/150 ml D5W 750 MG/150 ML RTU IV SCH (08:55)
[2016-04-09] MEDS: ALLOPURINOL 100 MG TAB PO SCH (08:55)
[2016-04-09] MEDS: LACTOBACILLUS ACIDOPHILUS TAB PO SCH (08:55)
[2016-04-09] MEDS: ESCITALOPRAM OXALATE 10 MG TAB PO SCH (08:55)
[2016-04-09] MEDS: GABAPENTIN 300 MG CAP PO SCH ×2 (08:55→19:56)
[2016-04-09] MEDS: FUROSEMIDE 40 MG TAB PO SCH (08:55)
[2016-04-09] MEDS: MAGNESIUM OXIDE 400 MG TAB PO SCH (11:40)
[2016-04-09] MEDS: FERROUS SULFATE 324 MG TAB PO SCH (11:40)
[2016-04-09] MEDS: POTASSIUM CHLORIDE 20 MEQ TAB PO SCH ×2 (11:40→18:17)
--- NOTE | 2016-04-09 16:35 | GENMEDPROG ---
Chief Complaint: COPD EXAC, A BRONCHITIS, DM-2, HTN Currently: Reports: Cough, NAGY, SOB DVT Prophylaxis: Yes - Physical Examination Vital Signs and I&O: Last Vital Signs Temp 97.6 F 04/09/16 14:00 Pulse 94 04/09/16 14:00 Resp 18 04/09/16 14:00 BP 136/57 L 04/09/16 14:00 Pulse Ox 94 04/09/16 14:00 Oxygen Pulse Oxygen Saturation 94 O2 Device Nasal Cannula Oxygen Flow Rate 1 Fraction of Inspired Oxygen ( FIO2) Intake & Output 04/06/16 04/07/16 04/08/16 04/09/16 23:59 23:59 23:59 23:59 Intake Total 3309 2865 3310 2319 Balance 3309 2865 3310 2319 Patient's weight 85.36 kg 85.956 kg 86.591 kg General: Alert, Oriented x3, Cooperative, Mild distress HEENT: Normal, PERRLA, EOMI, Anicteric Sclera, Mucous membr. moist/pink Neck: Full range of motion, Normal Trachea alignment, Normal inspection, No Masses palpable, No Thyromegaly palpable Lymphatics: Normal Respiratory: Accessory Muscle Use, Diminished, Tachypnea, Wheezes (DIFFUSE) Cardiovascular: Regular rate and rhythm, Normal S1, Normal S2, Good Pedal Pulses , PMI Not Lateralized, Chest Non Tender. negative: LE Edema GI: Normal bowel sounds, Soft, Non tender, No masses Extremities/Musculoskeletal: Normal pulses, FROM. negative: Edema, Clubbing, Cyanosis Skin: Warm,Dry and Intact, No breakdown Neurological: Normal speech, Strength at 5/5 X4 ext, Normal tone, DTR Intact, Cranial Nerves (normal) Psych/Mental Status: Appropriate, Normal Affect, Cooperative Lab/DI/Studies Reviewed: Laboratory Tests 04/09/16 04/09/16 05:33 07:04 Sodium 136 L Potassium 3.5 Chloride 99 Carbon Dioxide 30 Anion Gap 11 BUN 30 H Creatinine 1.10 H Estimated GFR (MDRD) 49 L Glucose 216 H POC Capillary Glucose 249 H Calculated Osmolality 275 Calcium 7.6 L - Assessment (1) Acute bronchitis Acute J20.9 - ACUTE BRONCHITIS, UNSPECIFIED Qualifiers: Bronchitis organism: unspecified organism Qualified Code(s): J20.9 - Acute bronchitis, unspecified Comment/Plan: Presented with cough, congestion and shortness of breath. IV antibiotic w/ Levaquin and pulmonary toilet as outlined. Patient doing well on current antibiotics. 1 blood culture + with probable contaminant. Continue current treatment. (2) COPD exacerbation Acute J44.1 - CHRONIC OBSTRUCTIVE PULMONARY DISEASE W (ACUTE) EXACERBATION Comment/Plan: Hypoxia and wheezing improving. Nonsmoker, so symptoms likely exacerbated by acute bronchitis. Will wean IV steroids, continue nebulizer treatments, IV antibiotics, pulmonary toilet. Oxygen as needed and increase activity as tolerated (3) Diabetes mellitus Acute E11.9 - TYPE 2 DIABETES MELLITUS WITHOUT COMPLICATIONS Qualifiers: Diabetes mellitus type: type 2 Diabetes mellitus complication status: with hyperglycemia Diabetes mellitus complication detail: D Diabetic retinopathy severity: D Proliferative retinopathy type: P Diabetes mellitus macular edema: D Diabetes mellitus intermission coordinator insulin use: without intermission coordinator use Laterality: L Chronic kidney disease stage: C Qualified Code(s): E11.65 - Type 2 diabetes mellitus with hyperglycemia Comment/Plan: Currently on Victoza. Continue current medications, Accu-Cheks and sliding scale insulin. Steroids likely will exacerbate and will need to wean as soon as possible (4) Hypertension Acute I10 - ESSENTIAL (PRIMARY) HYPERTENSION Qualifiers: Hypertension type: essential hypertension Qualified Code(s): I10 - Essential (primary) hypertension Comment/Plan: Continue home medications and monitor (5) Acute on chronic renal failure Acute N17.9 - ACUTE KIDNEY FAILURE, UNSPECIFIED; N18.9 - CHRONIC KIDNEY DISEASE, UNSPECIFIED
--- NOTE | 2016-04-09 17:31 | DIRPT ---
CLINICAL DATA: COPD. Hypoxia. Initial encounter. EXAM: CHEST 2 VIEW COMPARISON: Single view of the chest 04/05/2016 and 02/21/2016. FINDINGS: Lung volumes are low with crowding of the bronchovascular structures. Heart size is upper normal. Ill-defined interstitial opacities bilaterally have an appearance most compatible with interstitial edema. No pneumothorax or pleural effusion is identified. IMPRESSION: Findings suggestive of interstitial pulmonary edema in a low volume chest. Electronically Signed By: Quintin Carmona M.D. On: 04/09/2016 17:28
[2016-04-09] MEDS: ENOXAPARIN 40 MG/0.4 ML PFS SQ SCH (18:17)
[2016-04-09] MEDS: ACETAMINOPHEN 325 MG/TAB TABLET PO PRN (20:00)
[2016-04-10] MEDS: ALBUTEROL 0.083% 3 ML NEB NEB SCH ×2 (01:00→07:36)
[2016-04-10] MEDS: REGULAR INSULIN 100 UNITS/ML - 3 ML VIAL SQ SCH ×2 (05:36→11:24)
[2016-04-10 07:38] LABS: BLOOD UREA NITROGEN 28 MG/DL (7-17); CALCIUM 7.5 MG/DL (8.4-10.2); CALCULATED OSMOLALITY 274 MOs/Kg (270-290); CHLORIDE 99 mEq/L (98-107); GLUCOSE 134 MG/DL (70-99); SODIUM LEVEL 138 mEq/L (137-146)
[2016-04-10] MEDS: Levofloxacin 750 mg/150 ml D5W 750 MG/150 ML RTU IV SCH (09:08)
[2016-04-10] MEDS: LACTOBACILLUS ACIDOPHILUS TAB PO SCH (09:09)
[2016-04-10] MEDS: GABAPENTIN 300 MG CAP PO SCH (09:09)
[2016-04-10] MEDS: FUROSEMIDE 40 MG TAB PO SCH (09:09)
[2016-04-10] MEDS: ESCITALOPRAM OXALATE 10 MG TAB PO SCH (09:09)
[2016-04-10] MEDS: ALLOPURINOL 100 MG TAB PO SCH (09:09)
[2016-04-10] MEDS: POTASSIUM CHLORIDE 20 MEQ TAB PO SCH (09:09)
[2016-04-10] MEDS: METHYLPREDNISOLONE 40 MG/1 ML VIAL IV SCH (09:09)
[2016-04-10] MEDS: LIRAGLUTIDE 18 MG/3ML (0.6 MG/0.1 ML) PEN SQ SCH (09:10)
[2016-04-10] MEDS: NS 1,000 ML IV SCH (09:15)
[2016-04-10 09:52] VITALS: BP 131/62; PULSE 93; TEMP 97.8
--- NOTE | 2016-04-10 10:02 | PCM.DCS92 ---
- Final/Secondary Discharge Diagnosis (1) Acute bronchitis Acute J20.9 - ACUTE BRONCHITIS, UNSPECIFIED Present on Admission: Yes unspecified organism J20.9 - Acute bronchitis, unspecified Comment: Presented with cough, congestion and shortness of breath. IV antibiotic w/ Levaquin and pulmonary toilet as outlined. Patient doing well on current antibiotics. 1 blood culture + with probable contaminant. Continue current treatment. (2) COPD exacerbation Acute J44.1 - CHRONIC OBSTRUCTIVE PULMONARY DISEASE W (ACUTE) EXACERBATION Present on Admission: Yes Comment: Hypoxia and wheezing improving. Nonsmoker, so symptoms likely exacerbated by acute bronchitis. Will wean IV steroids, continue nebulizer treatments, IV antibiotics, pulmonary toilet. Now weaned off oxygen and increasing activity as tolerated (3) Diabetes mellitus Acute E11.9 - TYPE 2 DIABETES MELLITUS WITHOUT COMPLICATIONS Present on Admission: Yes type 2 with hyperglycemia D D P D without manager long term care use L C E11.65 - Type 2 diabetes mellitus with hyperglycemia Comment: Currently on Victoza. Continue current medications, Accu-Cheks and sliding scale insulin. Steroids likely will exacerbate her diabetes and will need to wean as soon as possible (4) Hypertension Acute I10 - ESSENTIAL (PRIMARY) HYPERTENSION Present on Admission: Yes essential hypertension I10 - Essential (primary) hypertension Comment: Continue home medications and monitor (5) Acute on chronic renal failure Acute N17.9 - ACUTE KIDNEY FAILURE, UNSPECIFIED; N18.9 - CHRONIC KIDNEY DISEASE, UNSPECIFIED Present on Admission: Yes Discharge Disposition: Assisted Living Facility Discharge Condition: Improved Cognitive Discharge Status: Cognitive deficits prevent decision making for safety. Fuctional Discharge Status: Walker Assistance, Deconditioning, Dyspnea with ambulation Physician Follow up/Referrals: Rossi Alvarez MD [Primary Care Provider] - One Week Home Medications / New Prescriptions: New Levofloxacin [Levaquin] 750 mg PO DAILY #3 tablet Prednisone [Sterapred Ds] 10 mg PO DIR #21 pack Continue Allopurinol [Zyloprim] 100 mg PO 0800 Albuterol Sulfate [Proair Hfa] 2 puff INH Q4H PRN PRN Reason: Shortness Of Breath Gabapentin [Neurontin] 300 mg PO BID Furosemide [Lasix] 40 mg PO 0800 Ergocalciferol (Vitamin D2) [Vitamin D2 (ergocalciferol)] 50,000 units PO .QFRIDAY Diltiazem HCl [Cardizem Cd] 240 mg PO 0800 Albuterol/Ipratropium Neb [Duoneb] 3 ml NEB Q6H PRN PRN Reason: Shortness Of Breath Acetaminophen Ex Str Tablet [TYLENOL EXTRA STRENGTH Tablet] 1,000 mg PO Q6H PRN PRN Reason: Mild Pain Or Fever Loperamide HCl [Imodium A-D] 2 mg PO . DIR PRN PRN Reason: LOOSE STOOL Acetaminophen [Non-Aspirin] 325 mg PO HS PRN PRN Reason: Pain Ferrous Sulfate [Feosol] 325 mg PO 0800 Lactobacillus Acidophilus/Pect [Acidophilus-Pectin Capsule] 1 cap PO 0800 Ondansetron HCl [Zofran] 4 mg PO Q8H PRN PRN Reason: Nausea Zolpidem Tartrate [Ambien] 5 mg PO HS PRN PRN Reason: Sleep Or Insomnia Guaifenesin-Dextromethorphan [Robitussin Dm] 10 ml PO Q4H PRN PRN Reason: Cough Potassium Chloride [Klor-Con M20] 20 meq PO 1999 Liraglutide [Victoza 18 mg/3 ml Pen] 1.2 mg SQ .DAILY@NOON Magnesium Oxide [Mag-Ox] 400 mg PO 1999 Alprazolam [Xanax] 0.25 mg PO DAILY PRN PRN Reason: Anxiety Cyanocobalamin (Vitamin B-12) [Vitamin B-12] 2,000 mcg PO 2000 Escitalopram Oxalate [Lexapro] 10 mg PO 0800 Oxycodone HCl/Acetaminophen [Percocet 5-325 mg Tablet] 1 each PO Q4H PRN PRN Reason: Moderate Pain O2 Device: Room Air Diet at Discharge: Heart Healthy Activity: As Tolerated Call Office For: Worsening Symptoms, Fever over 101 F, Pain Uncontrolled By Meds Discontinue use of:: Alcohol, All Types of Tobacco - DC Summary Notes Hospital Course Note:: Discharge summary on patient named STEFANY DÍAZ [place] [facility]16 by Quintin Santoyo MD. Date of discharge is []. Ms Díaz is a 70-year-old white female, resident of [facility] was sent to the emergency room with increasing respiratory distress and congestion. She has low cognitive function and is unable to provide much history. Her brother answers most questions for her. He states that she was doing well up until just couple of days ago. Since then she has had increasing cough, congestion, wheezing, shortness of breath. She normally does not wear oxygen and does not require nebulizer treatments. In the emergency room she is wheezing diffusely with increased work of breathing. She is severely hypoxic with a PO2 in the 50s. X-ray shows no obvious acute infiltrate given her hypoxia and respiratory distress she will be admitted to the hospital for further evaluation and management. Presented with cough, congestion and shortness of breath. She was started on IV antibiotic w/ Levaquin and pulmonary toilet as with DuoNebs, supplemental oxygen, and IV steroids. Patient doing well on current antibiotics. 1 blood culture + with probable contaminant. She has been able to wean gradually from her oxygen and her steroids. Her diabetes was managed with Victoza, Accu-Cheks and sliding scale insulin. Steroids likely will exacerbate her diabetes and will need to wean off these as soon as possible. She will be changed to oral steroids and antibiotics at discharge. The patient will return to [facility] facility with home health physical therapy. She will continue her previous medications for her hypertension. Total Time: 40 min Code: 82236 (>30min.) - Physical Exam Vital Signs: Last Vital Signs Temp 97.8 F 04/10/16 09:51 Pulse 93 04/10/16 09:51 Resp 20 04/10/16 09:51 BP 131/62 04/10/16 09:51 Pulse Ox 98 04/10/16 09:51 Oxygen Pulse Oxygen Saturation 98 O2 Device Nasal Cannula Oxygen Flow Rate 1 Fraction of Inspired Oxygen ( FIO2) Constitutional: No apparent distress, Alert Oriented to: Person, Place - HEENT Head: Normal. negative: Deformity, Laceration Eye: negative: Conjunctival Injection, Pale Conjunctiva Oropharynx: Normal. negative: Exudate, Red Tympanic Membrane: Dull, Retracted Nose: No Symptoms Reported. negative: Congestion, Discharge - Respiratory/Cardiovascular Respiratory: Diminished, Wheezes (DIFFUSE, mild) Cardiovascular: Normal - GI Auscultation: Normal Palpation: Normal Tenderness: Non tender Kan's Sign: Negative Rectal Exam: Deferred - Musculoskeletal Back: Normal Extremities: Normal, Radial Pulse (PALPABLE) - Integumentary Skin: Warm, Dry Lymphatics: Normal - Neurologic Memory Impaired: Normal Motor Function: Normal Cranial Nerve: Normal, 8 (hearing impaired) Cerebellar: Normal Mood Description: Anxious Thought: Coherent Perception: Normal
[2016-04-10] MEDS: MAGNESIUM OXIDE 400 MG TAB PO SCH (11:24)
[2016-04-10] MEDS: FERROUS SULFATE 324 MG TAB PO SCH (11:24)
[2016-04-11] MEDS ORDERED: ERGOCALCIFEROL (VITAMIN D2) 50000 UNITS CAP PO SCH (09:00)
== END 2016-04-10 14:30 | DRG 191 ==
LOC: ED 04:39 → MPS3 08:23
PROVIDERS: ADMIT Hospitalist; ATTEND Family Medicine
PROC: 039B3ZZ Drainage of Right Radial Artery, Percutaneous Approach (ICD-10-PCS; principal; 2016-04-05)
DX: J44.0 Chronic obstructive pulmonary disease with (acute) lower respiratory infection (principal); I13.0 Hypertensive heart and chronic kidney disease with heart failure and stage 1 through stage 4 chronic kidney disease, or unspecified chronic kidney disease; N17.9 Acute kidney failure, unspecified; E87.2 Acidosis; I50.9 Heart failure, unspecified; J44.1 Chronic obstructive pulmonary disease with (acute) exacerbation; J20.9 Acute bronchitis, unspecified; E11.22 Type 2 diabetes mellitus with diabetic chronic kidney disease; R09.02 Hypoxemia; E11.65 Type 2 diabetes mellitus with hyperglycemia; N18.9 Chronic kidney disease, unspecified; E78.00 Pure hypercholesterolemia, unspecified; Z86.73 Personal history of transient ischemic attack (TIA), and cerebral infarction without residual deficits; Z79.899 Other long term (current) drug therapy
CPT/HCPCS: 36415; 36600; 71010; 71020; 80048; 80053; 81001; 82550; 82803; 82962; 83036; 83605; 83880; 84484; 85007; 85025; 85027; 85610; 85730; 87040; 87086; 93005; 94640; 96372; 96374; 97162; 99284; G0237; J1650; J1956; J2920; J2930; J3490; J7620

== ENCOUNTER 2016-04-17 10:27 | Emergency (ER) | payer MEDICARE, BC ==
[2016-04-17 10:34] VITALS: TEMP 97.6; BMI 36.1
[2016-04-17 11:04] VITALS: PULSE 82
--- NOTE | 2016-04-17 11:05 | EDPRACDOC ---
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 PT IS UNABLE TO PROVIDE MUCH HX AT BASELINE; HOWEVER, SHE IS ABLE TO MOVE BOTH KNEES WHEN REQUESTED. Pain Severity: Reports: Mild Injuries/Pain Location: Reports: lower extremity Reason for Fall: Reports: lost balance Loss of Consciousness: no loss of consciousness Allergies/Adverse Reactions: Allergies amoxicillin [Amoxicillin] Allergy (Unknown, Verified 04/05/16 10:37) Rash-Generalized Penicillins Allergy (Verified 04/17/16 10:57) Rash-Generalized Home Medications: Ambulatory Orders Albuterol Sulfate [Proair Hfa] 2 puff INH Q4H PRN 11/24/13 Allopurinol [Zyloprim] 100 mg PO 0811/24/13 Ergocalciferol (Vitamin D2) [Vitamin D2 (ergocalciferol)] 50,000 units PO .QFRIDAY 11/24/13 Furosemide [Lasix] 40 mg PO 0800 11/24/13 Gabapentin [Neurontin] 300 mg PO BID 11/24/13 Diltiazem HCl [Cardizem Cd] 240 mg PO 0804/03/14 Acetaminophen Ex Str Tablet [TYLENOL EXTRA STRENGTH Tablet] 1,000 mg PO Q6H PRN 05/27/15 Acetaminophen [Non-Aspirin] 325 mg PO HS PRN 05/27/15 Albuterol/Ipratropium Neb [Duoneb] 3 ml NEB Q6H PRN 05/27/15 Ferrous Sulfate [Feosol] 325 mg PO 0800 05/27/15 Lactobacillus Acidophilus/Pect [Acidophilus-Pectin Capsule] 1 cap PO 0800 Loperamide HCl [Imodium A-D] 2 mg PO . DIR PRN 05/27/15 Ondansetron HCl [Zofran] 4 mg PO Q8H PRN 05/27/15 Guaifenesin-Dextromethorphan [Robitussin Dm] 10 ml PO Q4H PRN 02/21/16 Liraglutide [Victoza 18 mg/3 ml Pen] 1.2 mg SQ .DAILY@NOON 02/21/16 Magnesium Oxide [Mag-Ox] 400 mg PO 199902/21/16 Potassium Chloride [Klor-Con M20] 20 meq PO 199902/21/16 Zolpidem Tartrate [Ambien] 5 mg PO HS PRN 02/21/16 Alprazolam [Xanax] 0.25 mg PO DAILY PRN 04/05/16 Cyanocobalamin (Vitamin B-12) [Vitamin B-12] 2,000 mcg PO 199904/05/16 Escitalopram Oxalate [Lexapro] 10 mg PO 0804/05/16 Oxycodone HCl/Acetaminophen [Percocet 5-325 mg Tablet] 1 each PO Q4H PRN Levofloxacin [Levaquin] 750 mg PO DAILY #3 tablet 04/10/16 Guaifenesin/Dextromethorphan [Robafen-Dm Syrup] 10 ml PO Q4H PRN 04/17/16 ED Past Medical History - History Reviewed Yes Nurses notes reviewed and agree except as marked - Patient Medical History Neurological History: Reports: Cerebrovascular Accident, Seizures (20 YRS AGO) Cardiac History: Reports: Hypertension, Congestive Heart Failure, Hypercholesterolemia Respiratory History: Reports: COPD, Pneumonia GI/ History: Reports: Renal Failure (JUST DIAGNOSED). Denies: Kidney Stones Musculoskeletal History: Reports: Arthritis, Gout Psychological History: Reports: Depression, Anxiety. Denies: Substance Use Disorder Systemic History: Reports: Diabetes, Hypothyroidism (thyroidectomy). Denies: Cancer Surgical History: Reports: Tonsillectomy/Adnoidectomy, Other (Thyroidectomy ( Dr. Vides), Leg surgery as a child, knees, cataracts) - Family Medical History Reports: Hypertension (Father.), Cancer (Pancreatic: father.), Cardiac Disorders (Father with AR and heart disease.). Denies: Diabetes, Stroke - Social Medical History Smoking Status: Never smoker Social History: Denies: Substance Use Disorder EDM Review of Systems - Review of Systems ROS Unobtainable: Yes Review of systems cannot be obtained due to the patient's medical condition - Physical Exam Constitutional: No apparent distress Oriented to: Unable to Test Last recorded Vital Signs: Last Vital Signs Temp 97.6 F 04/17/16 10:31 Pulse 89 04/17/16 10:31 Resp 20 04/17/16 10:31 BP 125/58 L 04/17/16 10:31 Pulse Ox 96 04/17/16 10:31 Oxygen Pulse Oxygen Saturation 96 O2 Device Room Air Oxygen Flow Rate Fraction of Inspired Oxygen ( FIO2) - Musculoskeletal Back: Normal Extremities: Other (NO SIG TENDERNESS ON PALPATION; ABLE TO FLEX/EXT PASSIVELY. PT SMILES WHEN DONE. NO GRIMACING) - Integumentary Skin: Normal Lymphatics: Normal - Neurologic Memory Impaired: Unable to Test Motor Function: Normal Cranial Nerve: Normal Cerebellar: Normal Decision Time to Discharge: 12:20 - Departure Yes I personally saw and evaluated the patient. Disposition: Home Condition: Good Final Diagnosis: Accidental fall, LEFT KNEE CONTUSION Instructions: RICE Therapy (ED) Education/Counseling Given To: Patient, Family Member Education/Counseling Given Regarding: Diagnosis, Treatment, Prognosis Referrals: Rossi Alvarez MD [Primary Care Provider] - One Week Prescriptions: No Action Allopurinol [Zyloprim] 100 mg PO 0800 Albuterol Sulfate [Proair Hfa] 2 puff INH Q4H PRN PRN Reason: Shortness Of Breath Gabapentin [Neurontin] 300 mg PO BID Furosemide [Lasix] 40 mg PO 0800 Ergocalciferol (Vitamin D2) [Vitamin D2 (ergocalciferol)] 50,000 units PO .QFRIDAY Diltiazem HCl [Cardizem Cd] 240 mg PO 0800 Albuterol/Ipratropium Neb [Duoneb] 3 ml NEB Q6H PRN PRN Reason: Shortness Of Breath Acetaminophen Ex Str Tablet [TYLENOL EXTRA STRENGTH Tablet] 1,000 mg PO Q6H PRN PRN Reason: Mild Pain Or Fever Loperamide HCl [Imodium A-D] 2 mg PO . DIR PRN PRN Reason: LOOSE STOOL Acetaminophen [Non-Aspirin] 325 mg PO HS PRN PRN Reason: Pain Ferrous Sulfate [Feosol] 325 mg PO 0800 Lactobacillus Acidophilus/Pect [Acidophilus-Pectin Capsule] 1 cap PO 0800 Ondansetron HCl [Zofran] 4 mg PO Q8H PRN PRN Reason: Nausea Zolpidem Tartrate [Ambien] 5 mg PO HS PRN PRN Reason: Sleep Or Insomnia Guaifenesin-Dextromethorphan [Robitussin Dm] 10 ml PO Q4H PRN PRN Reason: Cough Potassium Chloride [Klor-Con M20] 20 meq PO 1999 Liraglutide [Victoza 18 mg/3 ml Pen] 1.2 mg SQ .DAILY@NOON Magnesium Oxide [Mag-Ox] 400 mg PO 1999 Alprazolam [Xanax] 0.25 mg PO DAILY PRN PRN Reason: Anxiety Cyanocobalamin (Vitamin B-12) [Vitamin B-12] 2,000 mcg PO 1999 Escitalopram Oxalate [Lexapro] 10 mg PO 0800 Oxycodone HCl/Acetaminophen [Percocet 5-325 mg Tablet] 1 each PO Q4H PRN PRN Reason: Moderate Pain Levofloxacin [Levaquin] 750 mg PO DAILY #3 tablet Guaifenesin/Dextromethorphan [Robafen-Dm Syrup] 10 ml PO Q4H PRN PRN Reason: Cough
--- NOTE | 2016-04-17 11:52 | DIRPT ---
CLINICAL DATA: 70-year-old female with painful left knee after a fall. Initial encounter. EXAM: LEFT KNEE - COMPLETE 4+ VIEW COMPARISON: None. FINDINGS: Metallic staple in the medial left femur distal meta diaphysis, no hardware loosening. Tricompartmental degenerative spurring. Chondrocalcinosis. Moderate tricompartmental joint space loss. Patella intact. Trace if any joint effusion. No acute osseous abnormality identified. Advanced calcified peripheral vascular disease. IMPRESSION: 1. Moderate to severe tricompartmental degenerative change. Chondrocalcinosis which can be seen in the setting of calcium pyrophosphate deposition disease. 2. Calcified peripheral vascular disease. 3. Remote postoperative changes to the distal femur metadiaphysis. Electronically Signed By: Sherie Weir M.D. On: 04/17/2016 11:49
[2016-04-17 12:01] VITALS: BP 127/57
== END 2016-04-17 12:09 ==
LOC: ED 10:27
DX: S80.02XA Contusion of left knee, initial encounter (principal); W19.XXXA Unspecified fall, initial encounter; Y93.9 Activity, unspecified
CPT/HCPCS: 99284